=== PATIENT | female | born 1970 | race Asian ===

== ENCOUNTER 2016-11-07 15:34 | Emergency (ER) | payer MEDICAID ==
[~2016-11-07] VITALS: Ht 162.6 cm; Wt 72.6 kg
[2016-11-07 15:48] VITALS: BP 164/106
[2016-11-07] MEDS ORDERED: KETOROLAC TROMETH 60MG/2ML VIAL IM ONE (17:15)
== END 2016-11-07 17:52 | disposition home or self-care (01) ==
LOC: EDBD 15:34 → ER 15:34
DX: M54.5 Low back pain (principal); E78.5 Hyperlipidemia, unspecified; I10 Essential (primary) hypertension; R73.09 Other abnormal glucose; V49.9XXA Car occupant (driver) (passenger) injured in unspecified traffic accident, initial encounter; Y93.89 Activity, other specified; Y99.8 Other external cause status; Y92.89 Other specified places as the place of occurrence of the external cause
CPT/HCPCS: 96372; 99283; J1885